=== PATIENT | female | born 1985 | race Caucasian/White ===

== ENCOUNTER 2017-07-11 03:32 | Observation (INO) ==
[2017-07-11] MEDS ORDERED: Hyoscyamine 0.5 MG/ML MLS IM ONE (04:02)
[2017-07-11] MEDS ORDERED: Ondansetron ODT 4 MG TAB.RAPDIS SL ONE (04:02)
--- NOTE | 2017-07-11 04:05 | Emergency Department Note ---
Disposition Clinical Impression: Abdominal pain Qualifiers: Abdominal location: right upper quadrant Qualified Code(s): R10.11 - Right upper quadrant pain Acute appendicitis Qualifiers: Acute appendicitis type: unspecified acute appendicitis type Qualified Code(s) : K35.80 - Unspecified acute appendicitis Disposition: Admitted As Inpatient Condition: Good Prescriptions: Hyoscyamine SL [Levsin SL] 0.125 mg SL Q4HR PRN #7 tab.subl PRN Reason: Pain Ondansetron ODT [Zofran ODT] 4 mg SL Q6HR PRN #7 tab.rapdis PRN Reason: Nausea Forms: ED Satisfaction Letter, Work/School Release Time of Disposition: 04:24 Abdominal Pain HPI - General Chief Complaint: ED Abdominal Pain Stated Complaint: "lower Rt belly pain" Time Seen by Provider: 07/11/17 03:40 Source: patient Mode of arrival: ambulatory Limitations: no limitations Nursing Notes Reviewed: Yes Vital Signs Reviewed: Yes - History of Present Illness HPI Narrative: 31-year-old female presents for evaluation of abdominal pain. Patient noted epigastric as well as right sided abdominal pain over the past couple days. No direct correlation with meals. Patient also notes some pain in her back. Patient denies any dysuria. Patient denies any diarrhea or constipation. No fevers. Patient notes some nausea but no vomiting. Patient denies having history of diabetes or ulcers. Patient denies any vaginal bleeding or discharge. Last menstrual period was at the beginning of last month. Patient states she does have her IUD in place denies any possibility of . Pain Scale: 5 - Related Data Allergies Allergy/AdvReac Type Severity Reaction Status Date / Time No Known Allergies Allergy Verified 07/11/17 03:37 All systems ED: reviewed and negative except as stated. Constitutional: Denies: fever Cardiovascular: Denies: chest pain Respiratory: Denies: cough, dyspnea Gastrointestinal: Reports: abdominal pain, nausea. Denies: vomiting, diarrhea, constipation Abdominal Pain PMH - Past Medical History Medical history: Reports: no medical history Female Surgical History: Reports: no surgical history Psychiatric history: Reports: no psych history - Social History Smoking status: Never smoker Alcohol use: Reports: none Drug use: Reports: none Physical Exam - General Limitations: no limitations General appearance: alert, in no apparent distress - Head Head exam: atraumatic, normocephalic, normal inspection - Eye Eye exam: Present: normal appearance, PERRL, EOMI - ENT ENT exam: normal exam - Neck Neck exam: Present: normal inspection - Chest Chest inspection: Present: normal inspection, symmetric chest wall rise - Respiratory Respiratory exam: Present: normal lung sounds bilaterally. Absent: respiratory distress - Cardiovascular Cardiovascular exam: Present: regular rate, normal rhythm. Absent: systolic murmur - Abdominal Exam Abdominal exam: Present: soft, Non-Tender. Absent: distention, guarding, rebound - Extremities Exam Extremities exam: Present: normal inspection. Absent: pedal edema - Back Exam Back exam: Present: normal inspection - Neurological Exam Neurological exam: Present: alert, oriented X3, CN II-XII intact - Skin Skin exam: Present: warm, dry, intact, normal color Course Course Narrative: Bedside ultrasound performed by me shows a gallbladder with 2 mobile gallstones. Anterior lateral bladder khan approximately 3 mm. Common bile duct is also proximally 3 mm. Patient had a negative sonographic Iyer's. Patient tolerated the procedure well. Patient likely has an element of biliary colic. Patient has a soft abdomen. Patient we have basic labs, imaging disposition pending. - Reevaluation(s) Reevaluation #1: Patient seen and examined. Patient's updated on plan of care. Patient does have an acute appendicitis. Time: 05:35 - Consultations Consultation #1: Case discussed with Dr. Kan Time: 05:36 Vital Signs Temperature 98.6 F 07/11/17 03:37 Pulse Rate 78 07/11/17 03:37 Respiratory Rate 16 07/11/17 03:37 Blood Pressure 142/86 07/11/17 03:37 O2 Sat by Pulse Oximetry 100 07/11/17 03:37 Temperature 98.6 F 07/11/17 03:37 Pulse Rate 78 07/11/17 03:37 Respiratory Rate 16 07/11/17 03:37 Blood Pressure 142/86 07/11/17 03:37 O2 Sat by Pulse Oximetry 100 07/11/17 03:37 Oxygen Delivery Oxygen Delivery Room Air Abdominal Pain - MDM Narrative Medical decision making narrative: Patient presented with complaints of abdominal pain. Patient does have evidence of cholelithiasis on bedside ultrasound. There are no secondary evidence of acute cholecystitis. Patient had a negative sonographic Iyer's. Patient had basic labs obtained. Given the patient's right lower quadrant tenderness the patient had CT imaging which showed evidence of acute appendicitis. The patient's case was discussed with the surgeon powertrain control systems engineer who except to the patient. Patient's pain was addressed in the ER. Patient was kept nothing by mouth. Patient will be admitted to the surgical service. Antibiotic was started in the ER. - Lab Data Lab results reviewed: Yes I reviewed the patient's lab results. Result diagrams: 07/11/17 04:02 07/11/17 04:02 Lab Results 07/11/17 07/11/17 07/11/17 Range/Units 03:46 04:02 04:02 WBC 15.2 H (4.3-11.1) K/mcL RBC 4.49 (3.82-4.97) M/mcL Hgb 13.2 (11.5-15.4) g/dL Hct 38.3 (35.3-44.9) % MCV 85.3 (83.0-100.0) fL MCH 29.4 (28.0-33.3) pg MCHC 34.5 (31.6-35.5) g/dL RDW 13.0 (11.5-14.5) % Plt Count 347 (140-400) K/mcL MPV 9.5 (9.4-12.4) fL Immature Gran % 0.4 (0-4) % Seg Neutrophils % 88.9 % Lymphocytes % 5.5 % Monocytes % 4.6 % Eosinophils % 0.3 % Basophils % 0.3 % Neutrophils # 13.5 H (1.6-8.9) K/mcL Lymphocytes # 0.8 (0.6-4.6) K/mcL Monocytes # 0.7 (0.0-1.3) K/mcL Eosinophils # 0.1 (0.0-0.6) K/mcL Basophils # 0.0 (0.0-0.2) K/mcL Sodium 134 L (136-145) mEq/L Potassium 3.7 (3.5-5.1) mEq/L Chloride 102 (98-107) mEq/L Carbon Dioxide 24 (23-29) mEq/L BUN 14 (6-20) mg/dL Creatinine 0.81 (0.60-1.20) mg/dL Est GFR ( Amer) > 60 (> 60) Est GFR (Non-Af Amer) > 60 (> 60) BUN/Creatinine Ratio 17 (6-26) Glucose 125 H (70-105) mg/dL Calculated Osmolality 280 (280-300) Calcium 9.6 (8.6-10.3) mg/dL Total Bilirubin 0.7 (0.3-1.0) mg/dL AST 12 L (13-39) Units/L ALT 13 (7-52) Units/L Alkaline Phosphatase 47 (34-104) Units/L Serum Total Protein 7.4 (6.4-8.9) g/dL Albumin 4.5 (3.5-5.7) g/dL Globulin 2.9 (2.4-3.5) g/dL Albumin/Globulin Ratio 1.6 (1.1-2.2) Lipase 27 (11-82) Units/L Urine Color (Yellow) Urine Clarity (Clear) Urine pH (5.0-8.0) pH Units Ur Specific [place] (1.010-1.025) Urine Protein (Neg-Trace) mg/dL Urine Glucose (UA) (Normal) mg/dL Urine Ketones (Negative) mg/dL Urine Blood (Negative) Urine Nitrite (Negative) Urine Bilirubin (Negative) Urine Urobilinogen (Normal) mg/dL Ur Leukocyte Esterase (Negative) Urine Microscopic RBC (0-3) per hpf Urine Microscopic WBC (0-3) per hpf Ur Squamous Epith Cells (None-Few) per lpf Urine Bacteria (None-Few) per hpf Hyaline Casts (None-Few) per lpf Urine Test Negative (Negative) 07/11/17 Range/Units 04:06 WBC (4.3-11.1) K/mcL RBC (3.82-4.97) M/mcL Hgb (11.5-15.4) g/dL Hct (35.3-44.9) % MCV (83.0-100.0) fL MCH (28.0-33.3) pg MCHC (31.6-35.5) g/dL RDW (11.5-14.5) % Plt Count (140-400) K/mcL MPV (9.4-12.4) fL Immature Gran % (0-4) % Seg Neutrophils % % Lymphocytes % % Monocytes % % Eosinophils % % Basophils % % Neutrophils # (1.6-8.9) K/mcL Lymphocytes # (0.6-4.6) K/mcL Monocytes # (0.0-1.3) K/mcL Eosinophils # (0.0-0.6) K/mcL Basophils # (0.0-0.2) K/mcL Sodium (136-145) mEq/L Potassium (3.5-5.1) mEq/L Chloride (98-107) mEq/L Carbon Dioxide (23-29) mEq/L BUN (6-20) mg/dL Creatinine (0.60-1.20) mg/dL Est GFR ( Amer) (> 60) Est GFR (Non-Af Amer) (> 60) BUN/Creatinine Ratio (6-26) Glucose (70-105) mg/dL Calculated Osmolality (280-300) Calcium (8.6-10.3) mg/dL Total Bilirubin (0.3-1.0) mg/dL AST (13-39) Units/L ALT (7-52) Units/L Alkaline Phosphatase (34-104) Units/L Serum Total Protein (6.4-8.9) g/dL Albumin (3.5-5.7) g/dL Globulin (2.4-3.5) g/dL Albumin/Globulin Ratio (1.1-2.2) Lipase (11-82) Units/L Urine Color Yellow (Yellow) Urine Clarity Clear (Clear) Urine pH 6.0 (5.0-8.0) pH Units Ur Specific [place] > 1.030 H (1.010-1.025) Urine Protein Trace (Neg-Trace) mg/dL Urine Glucose (UA) Normal (Normal) mg/dL Urine Ketones 15 H (Negative) mg/dL Urine Blood Trace H (Negative) Urine Nitrite Negative (Negative) Urine Bilirubin Negative (Negative) Urine Urobilinogen Normal (Normal) mg/dL Ur Leukocyte Esterase Negative (Negative) Urine Microscopic RBC 5-15 H (0-3) per hpf Urine Microscopic WBC 0-3 (0-3) per hpf Ur Squamous Epith Cells Many H (None-Few) per lpf Urine Bacteria None Seen (None-Few) per hpf Hyaline Casts None Seen (None-Few) per lpf Urine Test (Negative) - Radiology Data Radiology results reviewed: Yes I reviewed the patient's radiology results. Abdomen/Pelvis CT 07/11/17 05:03 IMPRESSION: Acute appendicitis - measuring over 2 cm diameter with moderate periappendiceal inflammatory stranding. No evidence of perforation. Mild hepatomegaly. D/ / Rogelio Valdez / Rogelio Valdez Interpreting Provider: Rogelio Valdez [place] Situation: Demographics Background: Presenting Complaint Assessment: Vital Signs, Patient/Family Expectation Recommendation: Barrier(s) to disposition, Recommendation based on pending studies, treatments, or consults SAnalia Report Given to: Dr. Lucius Dash Repor Time: 05:41
[2017-07-11 04:28] LABS: Bilirubin,Urine Negative (Negative); Blood,Urine Trace (Negative); Clarity,Urine Clear (Clear); Color,Urine Yellow (Yellow); Glucose,Urine (UA) Normal (Normal); Ketones,Urine 15 mg/dL (Negative); Leukocyte Esterase,Urine Negative (Negative); Nitrite,Urine Negative (Negative); Protein,Urine Trace mg/dL (Neg-Trace); Specific Gravity,Urine > 1.030 (1.010-1.025); Urobilinogen,Urine Normal (Normal)
[2017-07-11 04:28] LABS: Basophils % 0.3 %; Eosinophils # 0.1 K/mcL (0.0-0.6); Eosinophils % 0.3 %; Hematocrit 38.3 % (35.3-44.9); Hemoglobin 13.2 g/dL (11.5-15.4); Immature Granulocytes % 0.4 % (0-4); Lymphocytes # 0.8 K/mcL (0.6-4.6); Lymphocytes % 5.5 %; Mean Corpuscular HGB Conc 34.5 g/dL (31.6-35.5); Mean Corpuscular Hemoglobin 29.4 pg (28.0-33.3); Mean Corpuscular Volume 85.3 fL (83.0-100.0); Mean Platelet Volume 9.5 fL (9.4-12.4); Monocytes # 0.7 K/mcL (0.0-1.3); Monocytes % 4.6 %; Neutrophils # 13.5 K/mcL (1.6-8.9); Platelet Count 347 K/mcL (140-400); Red Blood Count 4.49 M/mcL (3.82-4.97); Segmented Neutrophils % 88.9 %
[2017-07-11 04:31] LABS: Bacteria,Urine None Seen per hpf (None-Few); Hyaline Casts,Urine None Seen per lpf (None-Few); Squamous Epithelial Cell,Urine Many per lpf (None-Few); WBC,Urine 0-3 per hpf (0-3)
[2017-07-11 04:50] LABS: Alanine Aminotransferase 13 Units/L (7-52); Albumin 4.5 g/dL (3.5-5.7); Albumin/Globulin Ratio 1.6 (1.1-2.2); Alkaline Phosphatase 47 Units/L (34-104); Aspartate Amino Transferase 12 Units/L (13-39); BUN/Creatinine Ratio 17 (6-26); Bilirubin,Total 0.7 mg/dL (0.3-1.0); Blood Urea Nitrogen 14 mg/dL (6-20); Calcium 9.6 mg/dL (8.6-10.3); Carbon Dioxide 24 mEq/L (23-29); Chloride 102 mEq/L (98-107); Globulin 2.9 g/dL (2.4-3.5); Glucose 125 mg/dL (70-105); Lipase 27 Units/L (11-82); Osmolality,Calculated 280 (280-300); Potassium 3.7 mEq/L (3.5-5.1); Sodium 134 mEq/L (136-145); Total Protein 7.4 g/dL (6.4-8.9); eGFR For African Americans > 60 (> 60); eGFR For Non-African Americans > 60 (> 60)
[2017-07-11] MEDS ORDERED: *HR* OxyCODONE/APAP 10/325 TABLET PO ONE (05:10)
[2017-07-11] MEDS ORDERED: *HR* FentaNYL (PF) 100 MCG/2 ML VIAL IVP ONE (05:28)
[2017-07-11] MEDS ORDERED: cefOXitin 2,000 MG in 0.9 % Sodium Chloride Mini Bag 100 ML IVPB ONE (05:37)
--- NOTE | 2017-07-11 05:38 | Emergency Department Note ---
Disposition Clinical Impression: Abdominal pain Qualifiers: Abdominal location: right upper quadrant Qualified Code(s): R10.11 - Right upper quadrant pain Acute appendicitis Qualifiers: Acute appendicitis type: unspecified acute appendicitis type Qualified Code(s) : K35.80 - Unspecified acute appendicitis Disposition: Admitted As Inpatient Condition: Good Forms: ED Satisfaction Letter, Work/School Release General Adult HPI - General Chief complaint: ED Abdominal Pain Stated complaint: "lower Rt belly pain" Time Seen by Provider: 07/11/17 03:40 Source: patient Mode of arrival: ambulatory Limitations: no limitations Nursing Notes Reviewed: Yes Vital Signs Reviewed: Yes - History of Present Illness Pain Scale: 5 - Related Data Allergies Allergy/AdvReac Type Severity Reaction Status Date / Time No Known Allergies Allergy Verified 07/11/17 03:37 Constitutional: Denies: fever Cardiovascular: Denies: chest pain Respiratory: Denies: cough, dyspnea Gastrointestinal: Reports: abdominal pain, nausea. Denies: vomiting, diarrhea, constipation Past Medical History - Past Medical History Medical history: Reports: no medical history Psychiatric history: Reports: no psych history - Social History Smoking Status: Never smoker Smokeless Tobacco Status: No Alcohol use: Reports: none Drug use: Reports: none Physical Exam - General Limitations: no limitations General appearance: alert, in no apparent distress Course Vital Signs Temperature 98.6 F 07/11/17 03:37 Pulse Rate 78 07/11/17 03:37 Respiratory Rate 16 07/11/17 03:37 Blood Pressure 142/86 07/11/17 03:37 O2 Sat by Pulse Oximetry 100 07/11/17 03:37 Temperature 98.6 F 07/11/17 03:37 Pulse Rate 78 07/11/17 03:37 Respiratory Rate 16 07/11/17 03:37 Blood Pressure 142/86 07/11/17 03:37 O2 Sat by Pulse Oximetry 100 07/11/17 03:37 Oxygen Delivery Oxygen Delivery Room Air Medical Decision Making - Lab Data Result diagrams: 07/11/17 04:02 07/11/17 04:02 Lab Results 07/11/17 07/11/17 07/11/17 Range/Units 03:46 04:02 04:02 WBC 15.2 H (4.3-11.1) K/mcL RBC 4.49 (3.82-4.97) M/mcL Hgb 13.2 (11.5-15.4) g/dL Hct 38.3 (35.3-44.9) % MCV 85.3 (83.0-100.0) fL MCH 29.4 (28.0-33.3) pg MCHC 34.5 (31.6-35.5) g/dL RDW 13.0 (11.5-14.5) % Plt Count 347 (140-400) K/mcL MPV 9.5 (9.4-12.4) fL Immature Gran % 0.4 (0-4) % Seg Neutrophils % 88.9 % Lymphocytes % 5.5 % Monocytes % 4.6 % Eosinophils % 0.3 % Basophils % 0.3 % Neutrophils # 13.5 H (1.6-8.9) K/mcL Lymphocytes # 0.8 (0.6-4.6) K/mcL Monocytes # 0.7 (0.0-1.3) K/mcL Eosinophils # 0.1 (0.0-0.6) K/mcL Basophils # 0.0 (0.0-0.2) K/mcL Sodium 134 L (136-145) mEq/L Potassium 3.7 (3.5-5.1) mEq/L Chloride 102 (98-107) mEq/L Carbon Dioxide 24 (23-29) mEq/L BUN 14 (6-20) mg/dL Creatinine 0.81 (0.60-1.20) mg/dL Est GFR ( Amer) > 60 (> 60) Est GFR (Non-Af Amer) > 60 (> 60) BUN/Creatinine Ratio 17 (6-26) Glucose 125 H (70-105) mg/dL Calculated Osmolality 280 (280-300) Calcium 9.6 (8.6-10.3) mg/dL Total Bilirubin 0.7 (0.3-1.0) mg/dL AST 12 L (13-39) Units/L ALT 13 (7-52) Units/L Alkaline Phosphatase 47 (34-104) Units/L Serum Total Protein 7.4 (6.4-8.9) g/dL Albumin 4.5 (3.5-5.7) g/dL Globulin 2.9 (2.4-3.5) g/dL Albumin/Globulin Ratio 1.6 (1.1-2.2) Lipase 27 (11-82) Units/L Urine Color (Yellow) Urine Clarity (Clear) Urine pH (5.0-8.0) pH Units Ur Specific [place] (1.010-1.025) Urine Protein (Neg-Trace) mg/dL Urine Glucose (UA) (Normal) mg/dL Urine Ketones (Negative) mg/dL Urine Blood (Negative) Urine Nitrite (Negative) Urine Bilirubin (Negative) Urine Urobilinogen (Normal) mg/dL Ur Leukocyte Esterase (Negative) Urine Microscopic RBC (0-3) per hpf Urine Microscopic WBC (0-3) per hpf Ur Squamous Epith Cells (None-Few) per lpf Urine Bacteria (None-Few) per hpf Hyaline Casts (None-Few) per lpf Urine Test Negative (Negative) 07/11/17 Range/Units 04:06 WBC (4.3-11.1) K/mcL RBC (3.82-4.97) M/mcL Hgb (11.5-15.4) g/dL Hct (35.3-44.9) % MCV (83.0-100.0) fL MCH (28.0-33.3) pg MCHC (31.6-35.5) g/dL RDW (11.5-14.5) % Plt Count (140-400) K/mcL MPV (9.4-12.4) fL Immature Gran % (0-4) % Seg Neutrophils % % Lymphocytes % % Monocytes % % Eosinophils % % Basophils % % Neutrophils # (1.6-8.9) K/mcL Lymphocytes # (0.6-4.6) K/mcL Monocytes # (0.0-1.3) K/mcL Eosinophils # (0.0-0.6) K/mcL Basophils # (0.0-0.2) K/mcL Sodium (136-145) mEq/L Potassium (3.5-5.1) mEq/L Chloride (98-107) mEq/L Carbon Dioxide (23-29) mEq/L BUN (6-20) mg/dL Creatinine (0.60-1.20) mg/dL Est GFR ( Amer) (> 60) Est GFR (Non-Af Amer) (> 60) BUN/Creatinine Ratio (6-26) Glucose (70-105) mg/dL Calculated Osmolality (280-300) Calcium (8.6-10.3) mg/dL Total Bilirubin (0.3-1.0) mg/dL AST (13-39) Units/L ALT (7-52) Units/L Alkaline Phosphatase (34-104) Units/L Serum Total Protein (6.4-8.9) g/dL Albumin (3.5-5.7) g/dL Globulin (2.4-3.5) g/dL Albumin/Globulin Ratio (1.1-2.2) Lipase (11-82) Units/L Urine Color Yellow (Yellow) Urine Clarity Clear (Clear) Urine pH 6.0 (5.0-8.0) pH Units Ur Specific [place] > 1.030 H (1.010-1.025) Urine Protein Trace (Neg-Trace) mg/dL Urine Glucose (UA) Normal (Normal) mg/dL Urine Ketones 15 H (Negative) mg/dL Urine Blood Trace H (Negative) Urine Nitrite Negative (Negative) Urine Bilirubin Negative (Negative) Urine Urobilinogen Normal (Normal) mg/dL Ur Leukocyte Esterase Negative (Negative) Urine Microscopic RBC 5-15 H (0-3) per hpf Urine Microscopic WBC 0-3 (0-3) per hpf Ur Squamous Epith Cells Many H (None-Few) per lpf Urine Bacteria None Seen (None-Few) per hpf Hyaline Casts None Seen (None-Few) per lpf Urine Test (Negative) Attestation Statement - Attestation Attestation: I examined this patient and my medical decision-making was reviewed with the Resident Physician. I agree with the documented findings, disposition and treatment plan as described except to the extent set forth below. Findings consistent with acute appendicitis. Patient will be admitted to Dr. crowe and antibiotics will be initiated at his request. Patient is stable at time of admission. No signs of perforation.
[2017-07-11] MEDS ORDERED: *HR* OxyCODONE Immed Rel 5 MG TABLET PO PRN (07:40)
[2017-07-11] MEDS ORDERED: Ringers Solution, Lactated 500 ML IVC ONE ×2 (07:42→12:09)
--- NOTE | 2017-07-11 07:43 | General Surg History&Physical ---
Date of Encounter: 07/11/17 Time of Encounter: 07:20 History of Present Illness Chief complaint: right lower quadrant abdominal pain, acute appendicitis HPI: Ms. Marie is a 31 year old female referred to surgical services for further evaluation and treatment of progressive right lower quadrant abdominal pain. The patient a Cates symptoms started vaguely in the mid abdomen about 48 hours ago. They have slowly progressed in severity and moved to the right lower quadrant. The pain became severe enough for the patient to present to [facility] ED for further evaluation and treatment. She was found to have acute right lower quadrant abdominal pain with an accompanying leukocytosis and CT findings of a dilated appendix with surrounding inflammatory fat stranding consistent with acute appendicitis. Past medical history: Unremarkable Surgical history: None Allergies: No known drug allergies Medications: The patient is on no routine home meds Social history: Patient is G3, P2, Ab1; the patient does not smoke, never has; patient denies any alcohol or illicit drug use. Physical examination: Age-appropriate woman resting comfortably in her hospital bed. She acknowledges right lower quadrant abdominal pain but is in no acute distress. The patient is on 0.73 m tall, 98.88 kg, BMI 33.1. The patient is afebrile, 98.9; pulse 64, respirations 14, blood pressure 116/ 76. SPO2 on room air 99%. Skin is warm, no obvious jaundice Lungs: Clear bilaterally, no abdominal pain on deep inspiration Cardiac: Regular rate, no appreciable murmurs Abdomen: Soft, with tenderness right lower quadrant. No obvious intra- abdominal masses, no rebound. Bowel sounds were hypoactive. Extremities: No obvious clubbing, cyanosis, edema. Laboratories: White count 15.2 with 13.5% neutrophils; hemoglobin 13.2, hematocrit 38.3. Platelet count 347,000. Electrolytes, BUN, creatinine, within normal limits, sodium borderline low at 134. LFTs without abnormality. Urinalysis notable for specific gravity of greater than 1.030, 15 ketones, trace blood. 5-15 RBC/hpf; 0-3 WBC/hpf Urine negative CT abdomen and pelvis was personally reviewed with [facility] Impression: 31-year-old female with 48-hour history of progressive right lower quadrant abdominal pain. Findings are consistent with acute appendicitis for which surgery is been recommended. The patient is a reasonable candidate for laparoscopic appendectomy. Risks include hemorrhage, infection, intra- abdominal abscess, injury to adjacent structures, and possible removal of her normal appendix. Alternative treatments include expectant follow-up with IV antibiotics and serial abdominal exams. The risks of this treatment include progressive abdominal pain, progression of the acute appendicitis with increased risk of perforation and recurrent acute appendicitis at a later date. I discussed this in detail with the patient she is willing to proceed with surgery as recommended. Consent has been obtained. Past Med Surg Social Fam HX - Past Medical History Medical history: no medical history Psychiatric history: no psych history - Social History Smoking Status: Never smoker Smokeless Tobacco Status: No Alcohol use: none Drug use: none Medications and Allergies Loratadine [Claritin] 10 mg PO DAILY 07/11/17 [History] Multivitamin [Multivitamins] 1 each PO DAILY 07/11/17 [History] 3 Allergy/AdvReac Type Severity Reaction Status Date / Time No Known Allergies Allergy Verified 07/11/17 03:37 Review of Systems All systems PM: The remainder of the systems were reviewed and are negative General Surgery Exam Initial Vital Signs Temp Pulse Resp BP Pulse Ox 98.6 F 78 16 142/86 100 07/11/17 03:37 07/11/17 03:37 07/11/17 03:37 07/11/17 03:37 07/11/17 03:37 Results - Labs 07/11/17 04:02 07/11/17 04:02 Abnormal lab results WBC 15.2 K/mcL (4.3-11.1) H 07/11/17 04:02 Neutrophils # 13.5 K/mcL (1.6-8.9) H 07/11/17 04:02 Sodium 134 mEq/L (136-145) L 07/11/17 04:02 Glucose 125 mg/dL (70-105) H 07/11/17 04:02 AST 12 Units/L (13-39) L 07/11/17 04:02 Ur Specific [place] > 1.030 (1.010-1.025) H 07/11/17 04:06 Urine Ketones 15 mg/dL (Negative) H 07/11/17 04:06 Urine Blood Trace (Negative) H 07/11/17 04:06 Urine Microscopic RBC 5-15 per hpf (0-3) H 07/11/17 04:06 Ur Squamous Epith Cells Many per lpf (None-Few) H 07/11/17 04:06 All other labs normal.
[2017-07-11] MEDS ORDERED: Ringers Solution, Lactated 1,000 ML IVC SCH ×2 (07:45→12:09)
--- NOTE | 2017-07-11 08:38 | Anesthesia Evaluation PreOp ---
Date of Encounter: 07/11/17 Time of Encounter: 08:35 - Past History Planned Operation: Lap Appy Cardiac History: Denies any Significant Hx Pulmonary History: Denies Any Significant HX FOREST MANAGEMENT PROFESSOR History: Denies Any Significant HX Other Medical History: Denies Any Significant HX Anesthesia History: No Prior Anesthetic Complications, Past Anesthesia (D&C), (No FamHx of ) : No Test: Negative Alcohol Use: none Drug use: none Medications and Allergies Loratadine [Claritin] 10 mg PO DAILY 07/11/17 [History] Multivitamin [Multivitamins] 1 each PO DAILY 07/11/17 [History] 3 Allergy/AdvReac Type Severity Reaction Status Date / Time No Known Allergies Allergy Verified 07/11/17 03:37 - Meds/Allergy Pre-op Review Medications Reviewed: Yes Allergies Reviewed: Yes Beta Blockers on Current Med List: No Anesthesia Results - Labs 07/11/17 04:02 07/11/17 04:02 Laboratory Results Laboratory Tests 07/11/17 07/11/17 03:46 04:02 Est GFR (Non-Af Amer) > 60 Urine Test Negative Impressions Abdomen/Pelvis CT 07/11/17 05:03 IMPRESSION: Acute appendicitis - measuring over 2 cm diameter with moderate periappendiceal inflammatory stranding. No evidence of perforation. Mild hepatomegaly. D/ / Rogelio Valdez / Rogelio Valdez Interpreting Provider: Rogelio Valdez Anesthesia Exam Vital Signs Temp Pulse Resp BP Pulse Ox 07/11/17 06:53 98.9 F 64 14 116/76 99 07/11/17 05:45 79 16 122/81 99 07/11/17 03:37 98.6 F 78 16 142/86 100 Intake and Output 07/10/17 07/11/17 07/11/17 23:59 07:59 15:59 Other: Stool Characteristics Normal for Patient Weight 98.883 kg Patient Weight 07/11/17 23:59 Weight 98.883 kg Height: 5'8" Weight: 218# BMI = 33 NPO (# of Hours): MNOc Pain Scale Used: Numeric (1 - 10) - HEENT Pupil (Motor): Pupils equal, EOMI Mallampati: I Teeth: Normal (1 lower Left cracked off tooth) Oral Opening: Greater than 3 - FOREST MANAGEMENT PROFESSOR LOC: Oriented FOREST MANAGEMENT PROFESSOR Motor: Normal RUE, Normal LUE, Normal RLE, Normal LLE, Normal Face FOREST MANAGEMENT PROFESSOR Sensory: Normal: RUE, LUE, RLE, LLE, Face - Cardiac Rhythm: Regular Murmur: None - Pulmonary Breath Sounds: bilateral Clear Respiratory Effort: Symmetrical Anesthesia Assess/Plan ASA Score: 2 Modified [place] Scale for Level of Consciousness: Cooperative, oriented, and tranquil Anesthetic Plan: General Monitoring Plan: Standard Monitors Recovery Plan: PACU Anes Supervising Prov Stmt: Pt seen/evaluated, R&B discussed questions answered and consent obtained. Judith Hawkins MD
[2017-07-11] MEDS ORDERED: Acetaminophen IV 1,000 MG/100 ML INFUS..BTL ONE (08:55)
[2017-07-11] MEDS ORDERED: Pregabalin 75 MG CAPSULE ONE (09:00)
[2017-07-11] MEDS ORDERED: Dexamethasone 4 MG/ML VIAL ONE (09:13)
[2017-07-11] MEDS ORDERED: Neostigmine Methylsulfate 3 MG/3 ML SYRINGE ONE (09:13)
[2017-07-11] MEDS ORDERED: *HR* Rocuronium Bromide 50 MG/5 ML VIAL ONE (09:13)
[2017-07-11] MEDS ORDERED: *HR* Propofol 200 MG/20 ML VIAL IVP ONE (09:13)
[2017-07-11] MEDS ORDERED: Lidocaine -MPF 2% 2 ML VIAL ONE (09:13)
[2017-07-11] MEDS ORDERED: Ondansetron 4 MG/2 ML VIAL ONE (09:13)
[2017-07-11] MEDS ORDERED: *HR* FentaNYL (PF) 100 MCG/2 ML VIAL ONE (09:13)
[2017-07-11] MEDS ORDERED: *HR* Midazolam HCl 2 MG/2 ML VIAL ONE (09:13)
[2017-07-11] MEDS ORDERED: Bupivacaine/EPI 1:200k 0.25%PF 10 ML VIAL INFILT ONE (09:20)
[2017-07-11] MEDS ORDERED: Ketorolac 30 MG/ML VIAL ONE (10:21)
[2017-07-11] MEDS ORDERED: *HR* Morphine 10 MG/ML VIAL ONE (10:23)
[2017-07-11] MEDS ORDERED: *HR* HYDROmorphone (PF) 1 MG/ML SYRINGE IVP PRN (10:25)
[2017-07-11] MEDS ORDERED: Dexamethasone 4 MG/ML VIAL IVP ONE (10:25)
[2017-07-11] MEDS ORDERED: *HR* Promethazine 25 MG/ML VIAL IVP PRN (10:25)
[2017-07-11] MEDS ORDERED: Ondansetron 4 MG/2 ML VIAL IVP ONE (10:25)
--- NOTE | 2017-07-11 11:29 | Operative Note ---
Date of procedure: 07/11/17 Pre-op diagnosis: Acute appendicitis Post-op diagnosis: same Procedure: Laparoscopic appendectomy Complications: None apparent Anesthesia: GETA Local Anesthetics: 0.25% Sensorcaine HCL with Epinephrine 1:200,000 SubQ (cc) ( 30 mL) Surgeon: Flo Kan Was there an executive staff assistant present: No Estimated blood loss (cc): 40 IV fluids (cc): 1,500 Specimen: appendix Condition: stable Disposition: PACU Procedure in Detail: The patient was brought to the operating room where she was placed on the procedure table. The patient was appropriately identified as to person and procedure. The accuracy of this information was confirmed by the patient and procedure team. The patient was then intubated and anesthetized under the supervision of Dr. Aubree Barker. The abdomen was prepped and draped in usual sterile fashion. Several milliliters of 0.25% bupivacaine with 1-200,000 units epinephrine was infiltrated into the infraumbilical skin and subcutaneous tissue. A small transverse incision was made with dissection extended to the fascia. The fascia was grasped and elevated. Additional bupivacaine with epinephrine was infiltrated into the fascia before was incised. An 11 mm Xcel port was established. The rigid laparoscope was placed within the obturator to visualize passage through the layers of the anterior abdominal wall. When the abdominal cavity was accessed, the obturator was replaced by the rigid laparoscope, and the abdomen was insufflated with gaseous carbon dioxide. There was no obvious visible injury from establishing the port. Under direct visualization a 5 mm port was placed in the midline suprapubic abdomen and a 12 mm port established in the left lower quadrant midclavicular line. Each of the sites was infiltrated with 0.25% bupivacaine with 1-200,000 units epinephrine. A markedly enlarged, acutely inflamed appendix was readily apparent on examination of the right lower abdomen/upper pelvis. There was extensive thickening and induration of the mesoappendix. The mesoappendix was dissected and ultimately divided with the aid of a Eth[employer] [place] 45 mm stapler. It was necessary to continue the dissection until the appendix and the junction with the cecum could be identified. The appendix was skeletonized at its junction with the cecum and divided with a second application of the Ethicon [place] 45 mm stapler. When the appendix was from the surrounding structures, it was placed in an endoscopic pouch and extracted through the infraumbilical opening. The appendix was retrieved and sent to pathology. The staple lines were inspected and appeared to be intact. Inflammatory fluid and blood that had accumulated in the right paracolic gutter was aspirated with an endoscopic suction device. Hemostasis appeared to be intact. The pneumoperitoneum was evacuated, the endoscopic instrumentation removed. The fascia of the infraumbilical opening was closed with interrupted [id number] 0 Vicryl using S retractors. The skin edges were sites were closed with subcuticular 4- 0 Vicryl. The incisions were sealed with Dermabond dermal adhesive. The patient was taken to recovery. Needle, sponge, and instrument counts were correct at the close of the case. Total volume of 0.25% bupivacaine with 1-200, 000 units epinephrine used during this procedure, 30 mL.
--- NOTE | 2017-07-11 11:41 | Anesthesia Evaluation Post Op ---
Date of Encounter: 07/11/17 Time of Encounter: 11:41 Notes: Patient's vital signs have been reviewed. Patient is stable postoperatively and has adequately recovered from anesthesia. Patient is determined to have stable airway patency and respiratory function including respiratory rate and oxygen saturation. Patient has a stable heart rate, blood pressure and adequate hydration. Patients mental status is acceptable. Patients temperature is appropriate. Pain and nausea are adequately controlled. - Discharge PostOp Status: Transfer Patient to floor
[2017-07-11] MEDS ORDERED: Ondansetron 4 MG/2 ML VIAL IVP PRN (12:09)
[2017-07-11] MEDS ORDERED: *HR* OxyCODONE/APAP 5/325 TABLET PO PRN (12:09)
[2017-07-11] MEDS ORDERED: Acetaminophen 325 MG TABLET PO PRN (12:09)
[2017-07-11 14:49] VITALS: BP 104/65
[2017-07-11] MEDS ORDERED: cefOXitin 2,000 MG in Water for inj. (sterile) 20 ML 10 ML IVP ONE (15:00)
--- NOTE | 2017-07-11 15:04 | Discharge Summary ---
Outpatient Proc Discharge Plan - Plan Additional Instructions: Regular diet Patient may shower, wash incisions with soap and water Activity as tolerated; lifting limited to less than [address] until at least 24 hours following administration of anesthesia Tylenol, ibuprofen, Motrin, Advil, etc. as needed for pain Prescription for Percocet, 5/325, #16, one every 6 hours as needed for pain not relieved by [id number] medication Outpatient follow-up in the office, ; patient to call office in a.m. to make appointment Prescriptions: OxyCODONE/APAP 5/325 [Percocet 5/325 MG] 1 each PO Q6H PRN 4 Days #16 tablet PRN Reason: Pain Home Medications: Acetaminophen [Tylenol] 650 mg PO Q6HR PRN tablet 07/11/17 [Rx] Loratadine [Claritin] 10 mg PO DAILY 07/11/17 [History] Multivitamin [Multivitamins] 1 each PO DAILY 07/11/17 [History] OxyCODONE/APAP 5/325 [Percocet 5/325 MG] 1 each PO Q6H PRN 4 Days #16 tablet [Rx]
== END 2017-07-11 17:11 | disposition home or self-care (01) ==
LOC: 3ANU 03:32 → EMEROO 03:32 → 3ANU 06:08
PROVIDERS: ADMIT Surgery; ATTEND Surgery